=== PATIENT | female | born 1995 | race Caucasian/White ===

== ENCOUNTER 2024-09-03 22:02 | Emergency (ER) | payer MEDICAID, SELFPAY ==
[2024-09-03 22:02] VITALS: BMI 32.5
[2024-09-03 22:39] VITALS: BP 146/93; PULSE 63; RESP 20; TEMP 37; O2SAT 97
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
[2024-09-03] MEDS: DEXAMETHASONE SOD PHOS INJ 10 MG/ML VIAL PO (23:09)
== END 2024-09-03 23:28 | disposition home or self-care (01) ==
PROVIDERS: Emergency Provider Emergency Medicine; PCP Family Medicine
DX: H65.03 Acute serous otitis media, bilateral (principal); F17.210 Nicotine dependence, cigarettes, uncomplicated
CPT/HCPCS: 99282; J1100

== ENCOUNTER 2025-07-03 19:16 | Emergency (ER) | payer MEDICAID, SELFPAY ==
[2025-07-03 19:37] VITALS: BP 142/95; PULSE 81; RESP 18; TEMP 36.8; O2SAT 97; BMI 35.4
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
== END 2025-07-03 23:07 | disposition left against medical advice (07) ==
PROVIDERS: Emergency Provider Emergency Medicine; PCP Family Medicine
DX: S20.213A Contusion of bilateral front wall of thorax, initial encounter (principal); Y04.0XXA Assault by unarmed brawl or fight, initial encounter
CPT/HCPCS: 71111; 99283

== ENCOUNTER 2025-07-05 20:28 | Emergency (ER) | payer MEDICAID, SELFPAY ==
[2025-07-05 20:29] VITALS: BMI 34.7
[2025-07-05 21:08] VITALS: BP 149/92; PULSE 73; RESP 18; TEMP 37.2; O2SAT 97
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
== END 2025-07-06 00:36 | disposition home or self-care (01) ==
PROVIDERS: Emergency Provider Emergency Medicine
DX: S06.0X0A Concussion without loss of consciousness, initial encounter (principal); Y04.0XXA Assault by unarmed brawl or fight, initial encounter
CPT/HCPCS: 70450; 99282